=== PATIENT | female | born 2000 | race Caucasian/White ===

== ENCOUNTER 2018-05-09 17:39 | Emergency (ER) | payer OTHER ==
[2018-05-09 19:59] LABS: SQUAMOUS EPITHIAL 7 /hpf (0-5); URINE BACTERIA OCC (<OCC); URINE BILIRUBIN NEGATIVE (NEGATIVE); URINE BLOOD NEGATIVE (NEGATIVE); URINE CLARITY Hazy (Clear); URINE COLOR Yellow (YELLOW); URINE GLUCOSE (UA) NORMAL (Normal); URINE LEUKOCYTE ESTERASE 2+ Leu/uL (Negative); URINE PROTEIN NEGATIVE (NEGATIVE); URINE UROBILINOGEN NORMAL mg/dL (0.2-1.0)
--- NOTE | 2018-05-09 20:15 | C.PDOC ---
History Of Present Illness 18 y/o female, whose LMP is 04/27/18 and lasted for 11 days, comes in complaining of yellow vaginal discharge and vaginal itching. Patient states she has been using some over the counter medications for the itching and took some amoxicillin for one day. Patient reports of some dysuria and denies any other associated symptoms. Patient states she is sexually active and has unprotected sex. Travel Physical Therapist was used, #[id number]. Time Seen by Provider: 05/09/18 19:27 Chief Complaint (Nursing): Female Genitourinary History Per: Patient History/Exam Limitations: no limitations Onset/Duration Of Symptoms: Days Current Symptoms Are (Timing): Still Present Past Medical History Reviewed: Historical Data, Nursing Documentation, Vital Signs Vital Signs: Last Vital Signs Temp 98.5 F 05/09/18 18:20 Pulse 68 05/09/18 18:20 Resp 18 05/09/18 18:20 BP 121/78 05/09/18 18:20 Pulse Ox 100 05/09/18 18:20 Family History: States: No Known Family Hx - Social History Hx Alcohol Use: No Hx Substance Use: No - Immunization History Hx Tetanus Toxoid Vaccination: No Hx Influenza Vaccination: No Hx Pneumococcal Vaccination: No Review Of Systems Constitutional: Negative for: Fever, Chills Cardiovascular: Negative for: Chest Pain Respiratory: Negative for: Shortness of Breath Gastrointestinal: Negative for: Vomiting, Abdominal Pain, Diarrhea Genitourinary: Positive for: Dysuria, Vaginal Discharge (yellow), Other (vaginal itching) Skin: Negative for: Rash Physical Exam - Physical Exam Appears: Non-toxic, No Acute Distress Skin: Warm, Dry Head: Atraumatic, Normacephalic Eye(s): bilateral: Normal Inspection Oral Mucosa: Moist Neck: Supple Chest: Symmetrical Cardiovascular: Rhythm Regular, No Murmur Respiratory: Normal Breath Sounds, No Rales, No Rhonchi, No Wheezing Gastrointestinal/Abdominal: Soft, No Tenderness, No Distention, No Guarding, No Rebound Pelvic: No Normal Bimanual Exam, No Vaginal Bleeding, Vaginal Discharge (yellow), Cervical Motion Tenderness, No Cervix Open, Adnexal Tenderness (Right), Other (Shaved pubis; labia slightly erythematous. chaperoned by Martha) Extremity: Bilateral: Atraumatic, Normal Color And Temperature, Normal ROM Neurological/Psych: Oriented x3, Normal Speech ED Course And Treatment - Laboratory Results Lab Results: Urine Color Yellow (YELLOW) 05/09/18 19:49 Urine Clarity Hazy (Clear) 05/09/18 19:49 Urine pH 6.0 (5.0-8.0) 05/09/18 19:49 Ur Specific [place] 1.025 (1.003-1.030) 05/09/18 19:49 Urine Protein Negative mg/dL (NEGATIVE) 05/09/18 19:49 Urine Glucose (UA) Normal mg/dL (Normal) 05/09/18 19:49 Urine Ketones Negative mg/dL (NEGATIVE) 05/09/18 19:49 Urine Blood Negative (NEGATIVE) 05/09/18 19:49 Urine Nitrate Negative (NEGATIVE) 05/09/18 19:49 Urine Bilirubin Negative (NEGATIVE) 05/09/18 19:49 Urine Urobilinogen Normal mg/dL (0.2-1.0) 05/09/18 19:49 Ur Leukocyte Esterase 2+ Jose Luis/uL (Negative) H 05/09/18 19:49 Urine WBC (Auto) 16 /hpf (0-5) H 05/09/18 19:49 Urine RBC (Auto) 4 /hpf (0-3) H 05/09/18 19:49 Ur Squamous Epith Cells 7 /hpf (0-5) H 05/09/18 19:49 Urine Bacteria Occ (<OCC) H 05/09/18 19:49 O2 Sat by Pulse Oximetry: 100 (RA) Pulse Ox Interpretation: Normal - CT Scan/US Pelvis/Transvaginal US Other Rad Studies (CT/US): Read By Radiologist, Radiology Report Reviewed CT/US Interpretation: EXAM: US Pelvis, Complete Transvaginal and Transabdominal. COMPARISON: None provided. CLINICAL HISTORY: Cmt and right adnexal pain. TECHNIQUE: Transvaginal and transabdominal pelvic ultrasound (complete) with image documentation. FINDINGS: ENDOMETRIUM: Normal thickness of 8.5 mm in AP dimension. UTERUS/CERVIX: The uterus is anteverted and anteflexed in position and normal in size measuring approximately 7.1 x 3.6 x 4.3 cm in longitudinal, AP and transverse dimensions respectively. No uterine fibroid or other mass evident. RIGHT OVARY: Normal Doppler flow. A 1.6 x 1.1 x 1.2 cm anechoic mass is present demonstrating through transmission thought consistent with a follicular cyst. No abnormal mass. The right ovary is mildly enlarged measuring approximately 3.6 x 2.2 x 2.8 cm in longitudinal, AP and transverse dimensions respectively. The estimated right ovarian volume is 11.5 cm. LEFT OVARY: Normal Doppler flow. No abnormal mass. Normal size measuring 2.8 x 1.3 x 2.6 cm in longitudinal, AP and transverse dimensions respectively. The estimated left ovarian volume is 4.7 cm. FREE FLUID: No free fluid. IMPRESSION: 1. No acute pelvic ultrasound findings are detected. 2. A 1.6 x 1.1 x 1.2 cm right ovarian follicular cyst is identified. 3. Otherwise, unremarkable pelvic ultrasound. Medical Decision Making Medical Decision Making: Plan: --UA --Urine culture --Urine test Disposition Counseled Patient/Family Regarding: Studies Performed, Diagnosis, Need For Followup, Rx Given - Disposition Referrals: [facility] [Outside] [facility] [Outside] Disposition: HOME/ ROUTINE Disposition Time: 23:16 Condition: GOOD Additional Instructions: Zackery un seguimiento con un gineclogo en la prxima semana. [place] Tylenol o Motrin para el dolor. Usted lopze sido tratado con antibiticos en la tiffanie de emergencias por ct presunta infeccin plvica. Si las culturas son positivas, [place] sexual tambin deber ser tratada. No recomiendo ninguna actividad sexual hasta que los resultados de la cultura estn de vuelta. Regrese a la tiffanie de emergencias para cualquier sntoma peor. [place] antobiticos en casa hasta que se complete para la infeccin de orina. Follow up with a fruit thinner in the next week. Take Tylenol or Motrin for pain. You have been treated with antibiotcs in the ER for a presumed pelvic infection. If the cultures come back positive, your sexual partner will need to be treated as well. Recommend no sexual activity until culture results are back. Return to ER for any worse symptms. Take antobiotics at home until completed for urine infection. Prescriptions: Cephalexin [cephalexin] 500 mg PO BID #14 cap Instructions: Pelvic Inflammatory Disease (DC), Urinary Tract Infection, Adult (DC), Ovarian Cyst (DC) Forms: Gen Discharge Inst Czech, Caterna (Czech) Print Language: CAMBODIAN - Clinical Impression Clinical Impression: Ovarian cyst, right, Cervicitis, UTI (urinary tract infection) - PA / ELECTION ASSISTANT / Resident Statement MD/DO has reviewed & agrees with the documentation as recorded. - Scribe Statement The provider has reviewed the documentation as recorded by the Scribe All medical record entries made by the Scribe were at my direction and personally dictated by me. I have reviewed the chart and agree that the record accurately reflects my personal performance of the history, physical exam, medical decision making, and the department course for this patient. I have also personally directed, reviewed, and agree with the discharge instructions and disposition.
[2018-05-09] MEDS ORDERED: cefTRIAXone (Rocephin) 250 mg Inj IM STA (22:08)
[2018-05-09 22:59] VITALS: BP 120/70; PULSE 72; RESP 20; TEMP 98.4
[2018-05-09 23:17] VITALS: O2SAT 100
--- NOTE | 2018-05-10 09:34 | US ---
Pelvic ultrasound HISTORY: Right adnexal pain. COMPARISON: None available. TECHNIQUE: Real-time sonography was performed through the pelvis utilizing transabdominal and transvaginal techniques. Findings: Uterus: 7.2 x 3.8 x 4.4 centimeters. Heterogeneous echotexture. Anteverted. Endometrium measures 7.3 millimeters, within normal limits. Free fluid noted within the pelvic cul-de-sac. Right ovary: 3.3 x 2.2 x 3.0 centimeters. Normal flow. Heterogeneous hypoechoic cyst measuring 1.6 x 1.1 x 1.2 centimeters. Left ovary: 2.7 x 1.8 x 2.6 centimeters. Normal flow. Impression: 1.6 centimeter right ovarian cyst. Free fluid within the pelvic cul-de-sac. If pain persists, consider correlation with a CT scan of the abdomen and pelvis.
== END 2018-05-09 23:24 | disposition home or self-care (01) ==
LOC: C.ER 17:39
DX: N83.201 Unspecified ovarian cyst, right side (principal); N72 Inflammatory disease of cervix uteri; N39.0 Urinary tract infection, site not specified
CPT/HCPCS: 76830; 76856; 81001; 81025; 87086; 87181; 87491; 87591; 96372; 99284; J0696

== ENCOUNTER 2018-06-15 19:02 | Emergency (ER) | payer OTHER ==
[2018-06-15 19:14] VITALS: BP 149/75; PULSE 103; RESP 18; TEMP 98.6; O2SAT 100
--- NOTE | 2018-06-15 20:26 | C.PDOC ---
History Of Present Illness 18 year old with a PMHx of anxiety presents to the ED for evaluation after anxiety attack. Patient states she takes Cymbalta, prescribed to her from [facility]. She has no psychiatry follow up established in the [place] and has not had her medications in 3 months. Since then patient reports having panic attacks every day. Today she developed similar episode and reports her heart was racing, hands freezing up, and mouth felt dry. All symptoms resolved on arrival. At time of exam, patient is asymptomatic. Time Seen by Provider: 06/15/18 19:51 Chief Complaint (Nursing): Palpitations History Per: Patient History/Exam Limitations: no limitations Onset/Duration Of Symptoms: Days Current Symptoms Are (Timing): Still Present Suicide/Self Injury Attempted (Context): None Modifying Factor(s): None Associated Symptoms: Anxiety Past Medical History Reviewed: Historical Data, Nursing Documentation, Vital Signs Vital Signs: Last Vital Signs Temp 98.6 F 06/15/18 19:10 Pulse 103 H 06/15/18 19:10 Resp 18 06/15/18 19:10 BP 149/75 06/15/18 19:10 Pulse Ox 100 06/15/18 19:10 - Medical History PMH: Anxiety Family History: States: No Known Family Hx - Social History Hx Alcohol Use: No Hx Substance Use: No - Immunization History Hx Tetanus Toxoid Vaccination: No Hx Influenza Vaccination: No Hx Pneumococcal Vaccination: No Review Of Systems Constitutional: Negative for: Fever, Weakness Eyes: Negative for: Vision Change Cardiovascular: Negative for: Chest Pain, Palpitations Respiratory: Negative for: Shortness of Breath Gastrointestinal: Negative for: Nausea, Vomiting, Diarrhea Skin: Negative for: Rash Neurological: Negative for: Weakness, Headache, Dizziness Psych: Positive for: Anxiety Physical Exam - Physical Exam Appears: Well, Non-toxic, No Acute Distress Skin: Normal Color, Warm, No Rash Head: Atraumatic, Normacephalic Eye(s): bilateral: Normal Inspection (no scleral icterus), PERRL, EOMI Oral Mucosa: Moist Neck: Normal ROM, Supple Chest: Symmetrical Cardiovascular: Rhythm Regular, No Murmur Respiratory: Normal Breath Sounds, No Accessory Muscle Use, Other (Normal inspiratory effort) Extremity: Bilateral: Atraumatic, Normal Color And Temperature, Normal ROM Pulses: Left Dorsalis Pedis: Normal, Right Dorsalis Pedis: Normal Neurological/Psych: Oriented x3, Normal Speech ED Course And Treatment O2 Sat by Pulse Oximetry: 100 (RA) Pulse Ox Interpretation: Normal Medical Decision Making Medical Decision Making: Impression: Panic attack Plan: EKG reviewed, no acute changes. Patient remains AAOx3 and asymptomatic during ED observation. Plan is to discharge patient home with refill for 2 week supply of medication. Counseled patient regarding the importance of followup, given referral for the clinic and CRC. [facility] guidance provided. Disposition Counseled Patient/Family Regarding: Diagnosis, Need For Followup, Rx Given - Disposition Referrals: Non [facility] Provider, [Primary Care Provider] - [facility] [Outside] [facility] [Outside] Disposition: HOME/ ROUTINE Disposition Time: 20:24 Condition: IMPROVED Prescriptions: DULoxetine [Cymbalta] 60 mg PO DAILY #14 ecc Instructions: Anxiety, Adult (DC) Forms: Gen Discharge Inst Citizen Of [place], [employer] (Citizen [place]) Print Language: ESTONIAN - Clinical Impression Clinical Impression: Anxiety attack - PA / ATLASSIAN ADMINISTRATOR / Resident Statement MD/DO has reviewed & agrees with the documentation as recorded. - Scribe Statement The provider has reviewed the documentation as recorded by the Scribe Tia Kilgore All medical record entries made by the Alyssaibkulwant were at my direction and personally dictated by me. I have reviewed the chart and agree that the record accurately reflects my personal performance of the history, physical exam, medical decision making, and the department course for this patient. I have also personally directed, reviewed, and agree with the discharge instructions and disposition.
--- NOTE | 2018-06-16 16:46 | CARD ---
APPROVED REPORT Date of service: 06/15/2018 EKG Measurement Heart [id number] <Conclusion> Normal sinus rhythm with sinus arrhythmia Normal ECG
== END 2018-06-15 20:43 | disposition home or self-care (01) ==
LOC: SUPCPDRO 19:02 → C.ER 19:02
DX: F41.9 Anxiety disorder, unspecified (principal)